=== PATIENT | female | born 1970 | race Caucasian/White ===

== ENCOUNTER 2019-12-25 11:32 | Inpatient (IN) | payer OTHER ==
[~2019-12-25] VITALS: Ht 154.9 cm; Wt 86.8 kg
[~2019-12-25 11:32] MED LIST: LISI-648
[2019-12-25] MEDS ORDERED: SODIUM CHLORIDE 0.9% 1,000 ML IV ONE ×2 (11:49)
[2019-12-25] MEDS ORDERED: ONDANSETRON HCL 4 MG/2 ML VIAL ONE (12:07)
[2019-12-25] MEDS ORDERED: ONDANSETRON HCL 4 MG/2 ML VIAL IV ONE (12:15)
[2019-12-25 13:45] LABS: Basophils # (auto) 0.1 10 ^3/uL (0-0.2); Basophils % (auto) 0.7 % (0.0-2.0); Eosinophils # (auto) 0 10 ^3/uL (0-0.8); Hematocrit 42.2 % (36.0-46.0); Hemoglobin 14.2 g/dL (12.2-16.2); Lymphocytes # (auto) 1.3 10 ^3/uL (0.4-5.4); Lymphocytes % (auto) 12.5 % (10.0-50.0); Mean Corpuscular Hemoglobin 32.6 pg (28.0-32.0); Mean Corpuscular Hgb Conc. 33.7 g/dL (32.0-36.0); Mean Corpuscular Volume 96.8 fL (80.0-100.0); Monocytes # (auto) 0.9 10 ^3/uL (0-1.3); Monocytes % (auto) 8.6 % (0.0-12.0); Neutrophils # (auto) 8.1 10 ^3/uL (1.6-8.6); Neutrophils % (auto) 78.2 % (37.0-80.0); Nucleated Red Blood Cells % 0.1 %; Platelet Count (auto) 354 10^3/uL (140-450); Red Blood Cells 4.36 10^6/uL (4.0-5.20); Red Cell Distribution Width 12.5 % (11.8-14.3); White Blood Cell 10.4 10^3/uL (4.4-10.8)
[2019-12-25] MEDS ORDERED: PROMETHAZINE HCL 25 MG/ML 1ML IV ONE (14:30)
[2019-12-25] MEDS ORDERED: SUMAtriptan SUCCINATE 6 MG/0.5 ML VL SC ONE (14:45)
[2019-12-25] MEDS ORDERED: SODIUM CHLORIDE 0.9% 1,000 ML IV SCH (14:54)
[2019-12-25] MEDS ORDERED: cloNIDine HCL 0.1 MG TAB PO ONE (15:00)
[2019-12-25] MEDS ORDERED: ALUM & MAG HYDROX-SIMETH LIQ(MAALOX) 30 ML PO PRN (15:00)
[2019-12-25] MEDS ORDERED: LISINOPRIL 10 MG TAB PO ONE (15:00)
[2019-12-25] MEDS ORDERED: LORazepam 0.5 MG TAB PO PRN (15:00)
[2019-12-25] MEDS ORDERED: ACETAMINOPHEN 500 MG TAB PO PRN (15:00)
[2019-12-25] MEDS ORDERED: ACETAMINOPHEN 325 MG TAB PO PRN (15:00)
[2019-12-25] MEDS ORDERED: MORPHINE SULF INJ 2 MG/ML SYRINGE 1ML IV PRN ×2 (15:00)
[2019-12-25] MEDS ORDERED: HYDROcodone-ACET 5/325MG TAB PO PRN (15:00)
[2019-12-25] MEDS ORDERED: NITROGLYCERIN 0.4 MG SL TAB SL PRN (15:00)
[2019-12-25] MEDS ORDERED: ONDANSETRON HCL 4 MG/2 ML VIAL IV PRN (15:00)
[2019-12-25] MEDS ORDERED: DOCUSATE SOD 100 MG CAP PO PRN (15:00)
[2019-12-25] MEDS ORDERED: DEXTROSE (50%) 50ML SYRG IV PRN (15:00)
[2019-12-25 15:13] VITALS: BP 142/106
[2019-12-25] MEDS ORDERED: CYCLOBENZAPRINE HCL 10 MG TAB PO PRN (15:15)
[2019-12-25] MEDS: InsuLIN REG 1unit/0.01ml Soln (100units/ml) SC SCH ×2 (16:20→21:59)
[2019-12-25] MEDS: ACCU-CHEK COMFORT CURVE STRIP VI SCH ×2 (16:21→22:00)
[2019-12-25 17:08] LABS: Sodium 133 mmol/L (136-145)
[2019-12-25 17:09] LABS: Anion Gap 11 (5-15); BUN/Creatinine Ratio 19.7; Blood Urea Nitrogen 28 mg/dL (7-18); Carbon Dioxide 21 mmol/L (21-32); Chloride 101 mmol/L (98-107); GFR African American 50 mL/min; GFR Non-African American 41 mL/min; Glucose 139 mg/dL (74-106); Potassium 3.7 mmol/L (3.5-5.1)
[2019-12-25 17:10] LABS: Alanine Aminotransferase 50 U/L (13-56); Albumin 4.3 g/dL (3.4-5.0); Alkaline Phosphatase 73 U/L (45-117); Aspartate Aminotransferase 45 U/L (15-37); Bilirubin, Total 0.6 mg/dL (0.2-1.0); Calcium 10.2 mg/dL (8.5-10.1); Total Protein 8.9 g/dL (6.4-8.2)
[2019-12-25] MEDS ORDERED: FAMOTIDINE (10MG/ML) 2ML VL IV ONE (17:15)
[2019-12-25 21:00] VITALS: BP 138/78
[2019-12-25 21:28] VITALS: BP 138/78
[2019-12-25] MEDS ORDERED: ATORVASTATIN 20 MG TAB PO SCH (22:00)
[2019-12-25] MEDS: DOXYCYCLINE 100MG/250ML 250 ML IV SCH (22:00)
[2019-12-25] MEDS: METOPROLOL TARTRATE 25 MG TAB PO SCH (22:00)
[2019-12-25 22:52] LABS: CRP High Sensitivity 0.18 mg/dL (< 0.3); Magnesium 2.3 mg/dL (1.6-2.6)
[2019-12-25 22:54] LABS: Cholesterol 200 mg/dL (< 200)
[2019-12-25 22:57] LABS: HDL Cholesterol 46 mg/dL (40-59); Triglycerides 513 mg/dL (< 150)
[2019-12-25] MEDS ORDERED: TEMAZEPAM 15 MG CAP PO ONE (23:15)
[2019-12-26] MEDS ORDERED: LEVO75TA50 PO (02:36)
[2019-12-26] MEDS ORDERED: NEBI5TAB2 PO (02:36)
[2019-12-26] MEDS ORDERED: [UNRECOGNIZED DRUG - CODE] PO ×2 (02:36→19:08)
[2019-12-26] MEDS ORDERED: FEBU40TA PO (02:36)
[2019-12-26 05:00] VITALS: BP 112/67
[2019-12-26 05:45] LABS: Basophils # (auto) 0 10 ^3/uL (0-0.2); Basophils % (auto) 0.3 % (0.0-2.0); Eosinophils # (auto) 0 10 ^3/uL (0-0.8); Eosinophils % (auto) 0.1 % (0.0-7.0); Hematocrit 40.1 % (36.0-46.0); Hemoglobin 13.5 g/dL (12.2-16.2); Lymphocytes # (auto) 1.9 10 ^3/uL (0.4-5.4); Mean Corpuscular Hemoglobin 32.9 pg (28.0-32.0); Mean Corpuscular Hgb Conc. 33.7 g/dL (32.0-36.0); Mean Corpuscular Volume 97.4 fL (80.0-100.0); Monocytes # (auto) 0.8 10 ^3/uL (0-1.3); Monocytes % (auto) 10.2 % (0.0-12.0); Neutrophils # (auto) 5.2 10 ^3/uL (1.6-8.6); Neutrophils % (auto) 65.4 % (37.0-80.0); Nucleated Red Blood Cells % 0.1 %; Platelet Count (auto) 293 10^3/uL (140-450); Red Blood Cells 4.11 10^6/uL (4.0-5.20); Red Cell Distribution Width 12.2 % (11.8-14.3)
[2019-12-26 06:00] LABS: Calcium 9.2 mg/dL (8.5-10.1); Potassium 3.4 mmol/L (3.5-5.1)
[2019-12-26 06:04] LABS: BUN/Creatinine Ratio 20.9; Bilirubin, Total 0.7 mg/dL (0.2-1.0); Total Protein 7.9 g/dL (6.4-8.2)
[2019-12-26] MEDS: InsuLIN REG 1unit/0.01ml Soln (100units/ml) SC SCH ×4 (06:37→22:13)
[2019-12-26] MEDS: LEVOTHYROXINE SODIUM 50 MCG TAB PO SCH (06:42)
[2019-12-26] MEDS: ACCU-CHEK COMFORT CURVE STRIP VI SCH ×4 (06:43→22:23)
[2019-12-26 08:00] VITALS: BP_SYST 138; BP_SYST 150; BP_DIAS 78; BP_DIAS 95
[2019-12-26] MEDS: BUDESONIDE (INHALATION) 180 MCG IH IN SCH ×2 (08:07→21:17)
[2019-12-26] MEDS: ALBUTEROL SULF HFA 90MCG INH 200DOSE IN SCH ×3 (08:08→21:17)
[2019-12-26 08:43] LABS: Urine Bacteria NONE SEEN /hpf (None Seen); Urine Blood Negative /uL (Negative); Urine Hyaline Cast FEW /lpf (0 - 2); Urine Mucus FEW (None Seen); Urine Specific Gravity 1.025 (1.001-1.035); Urine WBC 3 /hpf (0 - 5)
[2019-12-26 08:57] LABS: Alcohol, Urine < 3.0 mg/dL (0-10); Amphetamine Screen, Urine NEGATIVE (NEGATIVE); Barbiturate Scree,Urine NEGATIVE (NEGATIVE); Benzodiazephine Screen, Urine POSITIVE (NEGATIVE); Cannabinoid Screen, Urine NEGATIVE (NEGATIVE); Cocaine Screen, Urine NEGATIVE (NEGATIVE); Opiate Scree,Urine NEGATIVE (NEGATIVE); Phencyclidine Screen, Urine NEGATIVE (NEGATIVE)
[2019-12-26] MEDS: DexAMETHasone SOD PHOS 10MG/1ML VIAL INJ IV SCH (09:00)
[2019-12-26] MEDS: DOXYCYCLINE 100MG/250ML 250 ML IV SCH ×2 (09:01→22:14)
[2019-12-26] MEDS: ALLOPURINOL 100 MG TAB PO SCH (10:00)
[2019-12-26] MEDS ORDERED: FAMOTIDINE (10MG/ML) 2ML VL IV SCH ×2 (10:00)
[2019-12-26] MEDS ORDERED: ENOXAPARIN SOD 40 MG/0.4 ML SYRINGE SC SCH (10:00)
[2019-12-26] MEDS ORDERED: PROMETHAZINE HCL 25 MG/ML 1ML IV ONE (10:30)
[2019-12-26] MEDS: PROMETHAZINE HCL 25 MG/ML 1ML IV PRN ×4 (10:52→22:44)
[2019-12-26 12:00] VITALS: BP 148/72
[2019-12-26] MEDS: ASCORBIC ACID 1,000 MG TAB PO SCH (13:36)
[2019-12-26] MEDS: SERTRALINE HCL 50 MG TAB PO SCH (13:36)
[2019-12-26] MEDS: ZINC SULFATE 220mg CAP or TAB PO SCH (13:36)
[2019-12-26] MEDS: METOPROLOL TARTRATE 25 MG TAB PO SCH ×2 (13:36→22:13)
[2019-12-26] MEDS: CHOLECALCIFEROL (VITD3) 2,000 UNIT CAP PO SCH (13:36)
[2019-12-26] MEDS ORDERED: FUROSEMIDE 20 MG/2 ML VIAL IV ONE (14:45)
[2019-12-26] MEDS ORDERED: POTASSIUM CHL 10 Meq TABLET PO ONE (14:45)
[2019-12-26 17:00] VITALS: BP 155/82
[2019-12-26] MEDS ORDERED: SERT-274 PO (17:30)
[2019-12-26] MEDS ORDERED: LEVO125T66 PO (19:08)
[2019-12-26] MEDS ORDERED: POTA10TA51 PO (19:08)
[2019-12-26] MEDS ORDERED: TIZA4CAP13 PO (19:08)
[2019-12-26] MEDS ORDERED: ATOR20TA PO (19:08)
[2019-12-26] MEDS ORDERED: EXEN1INJ SC (19:08)
[2019-12-26] MEDS ORDERED: ETAN50IN5 SUBCUT (19:08)
[2019-12-26] MEDS ORDERED: TEMAZEPAM 15 MG CAP PO ONE (21:15)
[2019-12-26 22:00] VITALS: BP 141/86
[2019-12-26] MEDS: FAMOTIDINE (10MG/ML) 2ML VL IV SCH (22:14)
[2019-12-27 05:00] VITALS: BP 128/72
[2019-12-27] MEDS: ACCU-CHEK COMFORT CURVE STRIP VI SCH ×2 (06:37→12:07)
[2019-12-27] MEDS: InsuLIN REG 1unit/0.01ml Soln (100units/ml) SC SCH ×2 (06:37→11:30)
[2019-12-27] MEDS: LEVOTHYROXINE SODIUM 50 MCG TAB PO SCH (06:37)
[2019-12-27] MEDS: PROMETHAZINE HCL 25 MG/ML 1ML IV PRN ×3 (06:39→14:06)
[2019-12-27] MEDS: ALBUTEROL SULF HFA 90MCG INH 200DOSE IN SCH ×2 (06:51→14:41)
[2019-12-27] MEDS: BUDESONIDE (INHALATION) 180 MCG IH IN SCH (06:51)
[2019-12-27 08:00] VITALS: BP_SYST 135; BP_SYST 159; BP_DIAS 78; BP_DIAS 88
[2019-12-27] MEDS: DexAMETHasone SOD PHOS 10MG/1ML VIAL INJ IV SCH (09:25)
[2019-12-27] MEDS: ZINC SULFATE 220mg CAP or TAB PO SCH (09:26)
[2019-12-27] MEDS: FAMOTIDINE (10MG/ML) 2ML VL IV SCH (09:26)
[2019-12-27] MEDS: DOXYCYCLINE 100MG/250ML 250 ML IV SCH (09:26)
[2019-12-27] MEDS ORDERED: FUROSEMIDE 20 MG/2 ML VIAL IV SCH (10:00)
[2019-12-27] MEDS ORDERED: ENOXAPARIN SOD 100 MG/1 ML SYRINGE SC SCH (10:00)
[2019-12-27] MEDS: ALLOPURINOL 100 MG TAB PO SCH (10:00)
[2019-12-27] MEDS ORDERED: POTASSIUM CHL 10 Meq TABLET PO SCH (10:00)
[2019-12-27] MEDS: CHOLECALCIFEROL (VITD3) 2,000 UNIT CAP PO SCH (10:39)
[2019-12-27] MEDS: METOPROLOL TARTRATE 25 MG TAB PO SCH (10:47)
[2019-12-27] MEDS ORDERED: METH4PAK PO (11:52)
[2019-12-27] MEDS ORDERED: FURO1TAB33 PO (11:52)
[2019-12-27] MEDS ORDERED: ASCO10003 PO (11:52)
[2019-12-27] MEDS ORDERED: ZINC220T6 PO (11:52)
[2019-12-27] MEDS ORDERED: POTA1TAB61 PO (11:52)
[2019-12-27] MEDS ORDERED: DOXY-286 PO (11:52)
[2019-12-27] MEDS ORDERED: PANT40TA2 PO (11:52)
[2019-12-27] MEDS ORDERED: PROM25TA5 PO (11:54)
[2019-12-27 12:00] VITALS: BP 152/99
[2019-12-27] MEDS: ASCORBIC ACID 1,000 MG TAB PO SCH (12:06)
[2019-12-27] MEDS: SERTRALINE HCL 50 MG TAB PO SCH (12:06)
[2019-12-27 13:20] VITALS: BP 135/78
== END 2019-12-27 15:35 | disposition home or self-care (01) | DRG 177 ==
LOC: ER 11:32 → TELE 11:33 → TELE-EAST 21:33
PROVIDERS: ADMIT Hospitalist; ATTEND Internal Medicine
DX: U07.1 COVID-19 (principal); J12.89 Other viral pneumonia; N17.0 Acute kidney failure with tubular necrosis; K52.9 Noninfective gastroenteritis and colitis, unspecified; E86.0 Dehydration; E66.01 Morbid (severe) obesity due to excess calories; M06.9 Rheumatoid arthritis, unspecified; M1A.9XX0 Chronic gout, unspecified, without tophus (tophi); E03.9 Hypothyroidism, unspecified; F32.9 Major depressive disorder, single episode, unspecified; F41.9 Anxiety disorder, unspecified; G89.4 Chronic pain syndrome; E78.5 Hyperlipidemia, unspecified; E11.22 Type 2 diabetes mellitus with diabetic chronic kidney disease; I12.9 Hypertensive chronic kidney disease with stage 1 through stage 4 chronic kidney disease, or unspecified chronic kidney disease; N18.9 Chronic kidney disease, unspecified; Z90.49 Acquired absence of other specified parts of digestive tract; Z79.899 Other long term (current) drug therapy; Z68.35 Body mass index [BMI] 35.0-35.9, adult
CPT/HCPCS: 36415; 71045; 71250; 80053; 80061; 80307; 81001; 82728; 82962; 83036; 83605; 83615; 83735; 84443; 84484; 84702; 85025; 85379; 86141; 87086; 87426; 94640; 96361; 96372; 96374; 96375; G0378; J1100; J1815; J2405; J3490

== ENCOUNTER 2021-01-30 23:08 | Inpatient (IN) | payer OTHER ==
[~2021-01-30] VITALS: Ht 154.9 cm; Wt 86.5 kg
[~2021-01-30 23:08] MED LIST changes: +ASCO10003 PO; +ATOR20TA PO; +DOXY-286 PO; +ETAN50IN10 SUBCUT; +EXEN1INJ SC; +FEBU40TA PO; +FURO1TAB33 PO; +LEVO125T PO; -LISI-648; +METH4PAK PO; +NEBI5TAB2 PO; +PANT40TA2 PO; +POTA10TA51 PO; +POTA1TAB61 PO; +PROM25TA5 PO; +SERT50TA19 PO; +TIZA4CAP13 PO; +ZINC220T6 PO; +[UNRECOGNIZED DRUG - CODE] PO
[2021-01-30] MEDS ORDERED: NITROGLYCERIN 0.4 MG SL TAB SL ONE (23:45)
[2021-01-30] MEDS ORDERED: ASPirin 325 MG TAB PO ONE (23:45)
[2021-01-30 23:56] LABS: Basophils # (auto) 0.1 10 ^3/uL (0-0.2); Basophils % (auto) 0.8 % (0.0-2.0); Eosinophils # (auto) 0.1 10 ^3/uL (0-0.8); Hematocrit 45.6 % (36.0-46.0); Hemoglobin 15.4 g/dL (12.2-16.2); Lymphocytes # (auto) 2.1 10 ^3/uL (0.4-5.4); Lymphocytes % (auto) 28.8 % (10.0-50.0); Mean Corpuscular Hemoglobin 32.4 pg (28.0-32.0); Mean Corpuscular Hgb Conc. 33.8 g/dL (32.0-36.0); Mean Corpuscular Volume 96.1 fL (80.0-100.0); Monocytes # (auto) 0.5 10 ^3/uL (0-1.3); Monocytes % (auto) 6.8 % (0.0-12.0); Neutrophils # (auto) 4.6 10 ^3/uL (1.6-8.6); Neutrophils % (auto) 62.6 % (37.0-80.0); Red Blood Cells 4.74 10^6/uL (4.0-5.20); Red Cell Distribution Width 12.3 % (11.8-14.3); White Blood Cell 7.4 10^3/uL (4.4-10.8)
[2021-01-31 00:09] LABS: INR 0.97 (0.9-1.15); Partial Thromboplastin Time 23.1 sec (23.6-33.0)
[2021-01-31 00:14] LABS: Alanine Aminotransferase 44 U/L (13-56); Albumin 4.4 g/dL (3.4-5.0); Anion Gap 12 (5-15); Aspartate Aminotransferase 49 U/L (15-37); BUN/Creatinine Ratio 22.2; Blood Urea Nitrogen 28 mg/dL (7-18); Calcium 10.5 mg/dL (8.5-10.1); Carbon Dioxide 25 mmol/L (21-32); Chloride 99 mmol/L (98-107); GFR African American 57 mL/min; GFR Non-African American 47 mL/min; Glucose 194 mg/dL (74-106); Potassium 4.2 mmol/L (3.5-5.1); Sodium 136 mmol/L (136-145)
[2021-01-31 00:19] LABS: Alkaline Phosphatase 63 U/L (45-117); Bilirubin, Total 0.4 mg/dL (0.2-1.0); Total Protein 8.7 g/dL (6.4-8.2)
[2021-01-31] MEDS ORDERED: DOCUSATE SOD 100 MG CAP PO PRN ×2 (04:30→06:15)
[2021-01-31] MEDS ORDERED: hydrALAZINE HCL 20 MG/ML VL IV PRN (04:30)
[2021-01-31] MEDS ORDERED: ONDANSETRON HCL 4 MG/2 ML VIAL IV PRN ×2 (04:30→06:15)
[2021-01-31] MEDS ORDERED: NITROGLYCERIN 0.4 MG SL TAB SL PRN ×2 (04:30→06:15)
[2021-01-31] MEDS ORDERED: DEXTROSE (50%) 50ML SYRG IV PRN ×2 (04:30→06:15)
[2021-01-31] MEDS ORDERED: MORPHINE SULFATE INJECTION 2 MG/ML SYRG IV PRN ×2 (04:30→06:15)
[2021-01-31] MEDS ORDERED: HYDROcodone-ACET 5/325MG TAB PO PRN (04:30)
[2021-01-31] MEDS ORDERED: ACETAMINOPHEN 325 MG TAB PO PRN ×2 (04:30→06:15)
[2021-01-31] MEDS ORDERED: MORPHINE SULFATE 4 MG/ML SYR/VIAL IV PRN ×2 (04:30→06:15)
[2021-01-31 04:53] LABS: Basophils # (auto) 0.1 10 ^3/uL (0-0.2); Basophils % (auto) 1.1 % (0.0-2.0); Eosinophils # (auto) 0.1 10 ^3/uL (0-0.8); Eosinophils % (auto) 1.1 % (0.0-7.0); Hematocrit 44.8 % (36.0-46.0); Hemoglobin 15.3 g/dL (12.2-16.2); Lymphocytes # (auto) 3.5 10 ^3/uL (0.4-5.4); Lymphocytes % (auto) 37.5 % (10.0-50.0); Mean Corpuscular Hemoglobin 32.9 pg (28.0-32.0); Mean Corpuscular Hgb Conc. 34.2 g/dL (32.0-36.0); Mean Corpuscular Volume 96.2 fL (80.0-100.0); Monocytes # (auto) 0.8 10 ^3/uL (0-1.3); Monocytes % (auto) 8.6 % (0.0-12.0); Neutrophils # (auto) 4.8 10 ^3/uL (1.6-8.6); Neutrophils % (auto) 51.7 % (37.0-80.0); Red Blood Cells 4.66 10^6/uL (4.0-5.20); Red Cell Distribution Width 12.3 % (11.8-14.3); White Blood Cell 9.2 10^3/uL (4.4-10.8)
[2021-01-31 05:12] LABS: Albumin 1.1 g/dL (3.4-5.0); Potassium 4.1 mmol/L (3.5-5.1)
[2021-01-31 05:16] LABS: BUN/Creatinine Ratio 16.9; Bilirubin, Total 0.4 mg/dL (0.2-1.0); Total Protein 8.4 g/dL (6.4-8.2)
[2021-01-31 05:50] VITALS: BP 156/85
[2021-01-31] MEDS ORDERED: SODIUM CHLOR 0.9% PF (SALINE LOCK) 10ML VIAL/SYR IV SCH (06:00)
[2021-01-31] MEDS: ACCU-CHEK COMFORT CURVE STRIP VI SCH ×4 (06:35→21:59)
[2021-01-31] MEDS: InsuLIN REG 1unit/0.01ml Soln (100units/ml) SC SCH ×4 (06:46→22:06)
[2021-01-31] MEDS ORDERED: InsuLIN REG 1unit/0.01ml Soln (100units/ml) SC SCH ×2 (07:00→22:00)
[2021-01-31] MEDS ORDERED: LEVOTHYROXINE SODIUM 50 MCG TAB PO SCH (07:00)
[2021-01-31] MEDS ORDERED: ACCU-CHEK COMFORT CURVE STRIP VI SCH (07:00)
[2021-01-31] MEDS ORDERED: HYDR12.56 PO (07:49)
[2021-01-31 08:30] LABS: Cholesterol 312 mg/dL (< 200); HDL Cholesterol 49 mg/dL (40-59); Triglycerides 626 mg/dL (< 150)
[2021-01-31] MEDS: hydrALAZINE HCL 20 MG/ML VL IV PRN (08:51)
[2021-01-31] MEDS: MULTIPLE VITAMIN TAB PO SCH (08:52)
[2021-01-31] MEDS: amLODIPine BESYLATE 5 MG TAB PO SCH (08:52)
[2021-01-31] MEDS: ASPirin 81 mg TAB PO SCH (08:52)
[2021-01-31 09:00] VITALS: BP 165/96
[2021-01-31] MEDS ORDERED: PROMETHAZINE HCL 25 MG/ML 1ML ONE (09:28)
[2021-01-31] MEDS: PROMETHAZINE HCL 25 MG/ML 1ML IV PRN ×3 (09:54→17:58)
[2021-01-31] MEDS ORDERED: amLODIPine BESYLATE 5 MG TAB PO SCH (10:00)
[2021-01-31] MEDS ORDERED: FAMOTIDINE (10MG/ML) 2ML VL IV SCH ×2 (10:00)
[2021-01-31] MEDS ORDERED: MULTIPLE VITAMIN TAB PO SCH (10:00)
[2021-01-31] MEDS ORDERED: ASCORBIC ACID 500 MG TAB PO SCH ×2 (10:00)
[2021-01-31] MEDS ORDERED: ZINC SULFATE 220mg CAP or TAB PO SCH ×2 (10:00)
[2021-01-31] MEDS ORDERED: ASPirin 81 mg TAB PO SCH (10:00)
[2021-01-31 10:42] VITALS: BP 157/94
[2021-01-31 13:00] VITALS: BP 172/109
[2021-01-31] MEDS: LABETALOL HCL 200 MG TAB PO SCH ×2 (13:15→22:05)
[2021-01-31] MEDS ORDERED: LABETALOL HCL 5 MG/ML ML 20ML VIAL IV ONE (13:27)
[2021-01-31] MEDS ORDERED: METOCLOPRAMIDE HCL 5MG/ml INJ 2ml VIAL IV ONE (14:00)
[2021-01-31 14:07] LABS: Urine Bacteria NONE SEEN /hpf (None Seen); Urine Blood Negative /uL (Negative); Urine Budding Yeast OCCASIONAL /hpf (None Seen); Urine Specific Gravity 1.019 (1.001-1.035); Urine WBC <1 /hpf (0 - 5)
[2021-01-31] MEDS: FLUTICASONE PROP NASAL SPR 0.05 % (50MCG) 16GM EACHNOSTRI SCH ×2 (15:38→22:05)
[2021-01-31] MEDS: SODIUM CHLOR 0.9% PF (SALINE LOCK) 10ML VIAL/SYR IV SCH ×2 (15:39→21:51)
[2021-01-31 17:00] VITALS: BP 138/74
[2021-01-31] MEDS: HYDROcodone-ACET 5/325MG TAB PO PRN (17:58)
[2021-01-31] MEDS: PANTOPRAZOLE 40 MG/10 ML VIAL INJ IV SCH (21:51)
[2021-01-31] MEDS: SUCRALFATE 1 GM/10 ML ORAL SUSP PO SCH (21:59)
[2021-01-31] MEDS: ATORVASTATIN 20 MG TAB PO SCH (21:59)
[2021-01-31 22:00] VITALS: BP 146/96
[2021-01-31] MEDS ORDERED: LABETALOL HCL 200 MG TAB PO SCH (22:00)
[2021-01-31] MEDS ORDERED: ATORVASTATIN 20 MG TAB PO SCH (22:00)
[2021-02-01] MEDS: HYDROcodone-ACET 5/325MG TAB PO PRN ×3 (00:57→20:02)
[2021-02-01] MEDS: hydrALAZINE HCL 20 MG/ML VL IV PRN (04:47)
[2021-02-01 05:00] VITALS: BP 168/111
[2021-02-01 06:34] VITALS: BP 147/101
[2021-02-01] MEDS: SODIUM CHLOR 0.9% PF (SALINE LOCK) 10ML VIAL/SYR IV SCH ×3 (06:37→19:28)
[2021-02-01] MEDS: InsuLIN REG 1unit/0.01ml Soln (100units/ml) SC SCH ×4 (06:38→22:00)
[2021-02-01] MEDS: ACCU-CHEK COMFORT CURVE STRIP VI SCH ×4 (06:38→22:00)
[2021-02-01] MEDS: SUCRALFATE 1 GM/10 ML ORAL SUSP PO SCH ×4 (06:38→21:48)
[2021-02-01 09:00] VITALS: BP 147/102
[2021-02-01] MEDS: PANTOPRAZOLE 40 MG/10 ML VIAL INJ IV SCH ×2 (09:55→19:28)
[2021-02-01] MEDS: LABETALOL HCL 200 MG TAB PO SCH ×2 (09:56→21:08)
[2021-02-01] MEDS: MULTIPLE VITAMIN TAB PO SCH (09:56)
[2021-02-01] MEDS: amLODIPine BESYLATE 5 MG TAB PO SCH (09:57)
[2021-02-01] MEDS: ASPirin 81 mg TAB PO SCH (09:57)
[2021-02-01] MEDS: FLUTICASONE PROP NASAL SPR 0.05 % (50MCG) 16GM EACHNOSTRI SCH ×2 (09:59→21:48)
[2021-02-01 11:37] LABS: Alanine Aminotransferase 39 U/L (13-56); Anion Gap 16 (5-15); Calcium 10.1 mg/dL (8.5-10.1); Carbon Dioxide 19 mmol/L (21-32); Chloride 99 mmol/L (98-107); Glucose 183 mg/dL (74-106); Potassium 4.5 mmol/L (3.5-5.1); Sodium 134 mmol/L (136-145)
[2021-02-01 11:41] LABS: Alkaline Phosphatase 55 U/L (45-117); Aspartate Aminotransferase 58 U/L (15-37); BUN/Creatinine Ratio 22.6; Bilirubin, Total 0.8 mg/dL (0.2-1.0); Blood Urea Nitrogen 30 mg/dL (7-18); GFR African American 54 mL/min; GFR Non-African American 45 mL/min; Total Protein 8.2 g/dL (6.4-8.2)
[2021-02-01 12:57] VITALS: BP 137/87
[2021-02-01] MEDS ORDERED: HCTZ 25 MG TAB PO ONE (13:00)
[2021-02-01] MEDS ORDERED: ERGOCALCIFEROL 50,000 UNIT(1.25MG) CAP PO SCH (14:00)
[2021-02-01 14:40] LABS: Protein, Urine 64.8 mg/dL (0.0-11.9)
[2021-02-01 17:00] VITALS: BP 142/81
[2021-02-01] MEDS ORDERED: TEMAZEPAM 15 MG CAP PO ONE (21:45)
[2021-02-01] MEDS: ATORVASTATIN 20 MG TAB PO SCH (21:48)
[2021-02-01 21:56] LABS: Basophils # (auto) 0 10 ^3/uL (0-0.2); Basophils % (auto) 0.4 % (0.0-2.0); Eosinophils # (auto) 0 10 ^3/uL (0-0.8); Eosinophils % (auto) 0.2 % (0.0-7.0); Hematocrit 47.4 % (36.0-46.0); Hemoglobin 15.6 g/dL (12.2-16.2); Lymphocytes # (auto) 2.7 10 ^3/uL (0.4-5.4); Lymphocytes % (auto) 24.6 % (10.0-50.0); Mean Corpuscular Hemoglobin 32.7 pg (28.0-32.0); Mean Corpuscular Hgb Conc. 32.9 g/dL (32.0-36.0); Mean Corpuscular Volume 99.4 fL (80.0-100.0); Monocytes # (auto) 0.9 10 ^3/uL (0-1.3); Monocytes % (auto) 8.1 % (0.0-12.0); Neutrophils # (auto) 7.3 10 ^3/uL (1.6-8.6); Neutrophils % (auto) 66.7 % (37.0-80.0); Nucleated Red Blood Cells % 0.2 %; Red Blood Cells 4.77 10^6/uL (4.0-5.20); Red Cell Distribution Width 12.4 % (11.8-14.3); White Blood Cell 10.9 10^3/uL (4.4-10.8)
[2021-02-01 22:00] VITALS: BP 167/106
[2021-02-02 05:00] VITALS: BP 141/79
[2021-02-02] MEDS: SUCRALFATE 1 GM/10 ML ORAL SUSP PO SCH ×2 (06:13→12:00)
[2021-02-02] MEDS: SODIUM CHLOR 0.9% PF (SALINE LOCK) 10ML VIAL/SYR IV SCH ×2 (06:13→16:06)
[2021-02-02] MEDS: ACCU-CHEK COMFORT CURVE STRIP VI SCH ×2 (06:13→12:55)
[2021-02-02] MEDS: InsuLIN REG 1unit/0.01ml Soln (100units/ml) SC SCH ×2 (06:19→11:30)
[2021-02-02 07:59] LABS: Potassium 4.1 mmol/L (3.5-5.1)
[2021-02-02 08:05] LABS: Albumin 4.6 g/dL (3.4-5.0); BUN/Creatinine Ratio 22.1; Bilirubin, Total 0.9 mg/dL (0.2-1.0); Calcium 10.4 mg/dL (8.5-10.1); Magnesium 2.6 mg/dL (1.6-2.6); Phosphorus 4.2 mg/dL (2.5-4.90); Total Protein 9.1 g/dL (6.4-8.2)
[2021-02-02 08:13] LABS: Basophils # (auto) 0 10 ^3/uL (0-0.2); Basophils % (auto) 0.6 % (0.0-2.0); Eosinophils # (auto) 0 10 ^3/uL (0-0.8); Eosinophils % (auto) 0.3 % (0.0-7.0); Hematocrit 50.5 % (36.0-46.0); Hemoglobin 17.1 g/dL (12.2-16.2); Lymphocytes # (auto) 2.7 10 ^3/uL (0.4-5.4); Lymphocytes % (auto) 36.9 % (10.0-50.0); Mean Corpuscular Hemoglobin 32.7 pg (28.0-32.0); Mean Corpuscular Hgb Conc. 33.9 g/dL (32.0-36.0); Mean Corpuscular Volume 96.4 fL (80.0-100.0); Monocytes # (auto) 0.6 10 ^3/uL (0-1.3); Monocytes % (auto) 7.8 % (0.0-12.0); Neutrophils % (auto) 54.4 % (37.0-80.0); Nucleated Red Blood Cells % 2.2 %; Red Blood Cells 5.23 10^6/uL (4.0-5.20); Red Cell Distribution Width 12.4 % (11.8-14.3); White Blood Cell 7.4 10^3/uL (4.4-10.8)
[2021-02-02 09:00] VITALS: BP 132/85
[2021-02-02] MEDS: amLODIPine BESYLATE 5 MG TAB PO SCH (09:38)
[2021-02-02] MEDS: PANTOPRAZOLE 40 MG/10 ML VIAL INJ IV SCH (09:38)
[2021-02-02] MEDS: FLUTICASONE PROP NASAL SPR 0.05 % (50MCG) 16GM EACHNOSTRI SCH (09:39)
[2021-02-02] MEDS: MULTIPLE VITAMIN TAB PO SCH (09:39)
[2021-02-02] MEDS: LABETALOL HCL 200 MG TAB PO SCH (09:39)
[2021-02-02] MEDS: ASPirin 81 mg TAB PO SCH (10:00)
[2021-02-02 13:00] VITALS: BP 137/85
[2021-02-02 15:11] VITALS: BP 132/85
== END 2021-02-02 15:53 | disposition home or self-care (01) | DRG 304 ==
LOC: ER 23:08 → TELE 01-31 04:33 → ER 01-31 05:00 → TELE-WESTW 01-31 05:18
PROVIDERS: ADMIT Nurse Practitioner Family; ATTEND Hospitalist
DX: I16.0 Hypertensive urgency (principal); N17.0 Acute kidney failure with tubular necrosis; E11.65 Type 2 diabetes mellitus with hyperglycemia; E11.22 Type 2 diabetes mellitus with diabetic chronic kidney disease; E78.5 Hyperlipidemia, unspecified; I12.9 Hypertensive chronic kidney disease with stage 1 through stage 4 chronic kidney disease, or unspecified chronic kidney disease; M79.7 Fibromyalgia; Z20.822 Contact with and (suspected) exposure to COVID-19; G89.29 Other chronic pain; M54.9 Dorsalgia, unspecified; E78.1 Pure hyperglyceridemia; N18.30 Chronic kidney disease, stage 3 unspecified; E11.21 Type 2 diabetes mellitus with diabetic nephropathy; R80.9 Proteinuria, unspecified; E66.01 Morbid (severe) obesity due to excess calories; E03.9 Hypothyroidism, unspecified; R07.89 Other chest pain; J06.9 Acute upper respiratory infection, unspecified; E55.9 Vitamin D deficiency, unspecified; Z82.49 Family history of ischemic heart disease and other diseases of the circulatory system; Z90.49 Acquired absence of other specified parts of digestive tract; Z68.36 Body mass index [BMI] 36.0-36.9, adult; Z86.16 Personal history of COVID-19
CPT/HCPCS: 36415; 71045; 74176; 76775; 80053; 80061; 81001; 82270; 82306; 82570; 82962; 83036; 83735; 83970; 84100; 84156; 84300; 84443; 84484; 84702; 85025; 85379; 85610; 85730; 87045; 87426; 87427; 87804; 93306; C9113; G0378; J1815; J2405; J3490